=== PATIENT | female | born 1960 | race Caucasian/White ===

== ENCOUNTER 2019-01-04 02:40 | Observation (INO) | payer BC ==
[2019-01-04] MEDS ORDERED: NORMAL SALINE 1000 ML 1,000 ML IV ONE ×2 (03:08→08:15)
[2019-01-04] MEDS ORDERED: RINGERS SOLUTION,LACTATED 1,000 ML IV ONE (03:30)
[2019-01-04 03:42] LABS: ABSOLUTE LYMPHOCYTES (AUTO) 1.2 10^3/uL (0.5-4.7); ABSOLUTE MONOCYTES (AUTO) 1.3 10^3/uL (0.1-1.4); ABSOLUTE NEUT (AUTO) 8.1 10^3/uL (1.7-8.2); BASOPHILS % (AUTO) 0.3 % (0-2); EOSINOPHILS % (AUTO) 0.1 % (0-6); HEMATOCRIT 36.4 % (36.0-47.0); HEMOGLOBIN 12.8 g/dL (12.0-15.5); LYMPHOCYTES % (AUTO) 11.2 % (13-45); MEAN CORPUSCULAR HEMOGLOBIN 29.9 pg (27.0-33.4); MEAN CORPUSCULAR HGB CONC 35.1 g/dL (32.0-36.0); MEAN CORPUSCULAR VOLUME 85 fl (80-97); MONOCYTES % (AUTO) 12.1 % (3-13); PLATELET COUNT 241 10^3/uL (150-450); RED BLOOD COUNT 4.26 10^6/uL (3.72-5.28); RED CELL DISTRIBUTION WIDTH 13.4 % (11.5-14.0); SEGMENTED NEUTROPHILS % (AUTO) 76.3 % (42-78); TOTAL CELLS COUNTED % (AUTO) 100 %; WHITE BLOOD COUNT 10.6 10^3/uL (4.0-10.5)
--- NOTE | 2019-01-04 03:51 | RADIOLOGY REPORT (SQ) ---
EXAM DESCRIPTION: CT CERVICAL SPINE WITHOUT IV CONTRAST COMPLETED DATE/TME: 01/04/2019 03:08 CLINICAL HISTORY: 58 years Female, Fall Comparison: None. Technique: No contrast. Coronal and sagittal reformat. This exam was performed according to our departmental dose-optimization program, which includes automated exposure control, adjustment of the mA and/or kV according to patient size and/or use of iterative reconstruction technique.[facility]: Dose Right [facility]: CareDose [facility]: Dose Right [facility]: Teradose 4D [facility]: YASSSU LIMITATIONS: None Findings: Moderate disc bulge-osteophyte complex at C5-C6 and C6-C7 levels. Mild spondylosis at the cervicothoracic spine. Normal alignment. Normal curvature. No fracture. Normal vertebral heights. Partially imaged nuchal soft tissues, inferior cranium, and upper thorax appear otherwise grossly intact. IMPRESSION: No acute findings.
--- NOTE | 2019-01-04 03:53 | RADIOLOGY REPORT (SQ) ---
EXAM DESCRIPTION: CT HEAD WITHOUT IV CONTRAST COMPLETED DATE/TME: 01/04/2019 03:07 CLINICAL HISTORY: 58 years Female, Head injury COMPARISON: None. TECHNIQUE: No contrast. Coronal and sagittal reformat. This exam was performed according to our departmental dose-optimization program, which includes automated exposure control, adjustment of the mA and/or kV according to patient size and/or use of iterative reconstruction technique. FINDINGS: No hemorrhage or infarct. No mass, mass effect, or midline shift. Brain and extra-axial structures appear intact. IMPRESSION: Normal CT of the head.
[2019-01-04 04:04] LABS: ALANINE AMINOTRANSFERASE 46 U/L (9-52); ALBUMIN 3.4 g/dL (3.5-5.0); ALKALINE PHOSPHATASE 101 U/L (38-126); ANION GAP 11 (5-19); ASPARTATE AMINO TRANSFERASE 36 U/L (14-36); BILIRUBIN,DIRECT 0.3 mg/dL (0.0-0.4); BLOOD UREA NITROGEN 21 mg/dL (7-20); CALCIUM 8.3 mg/dL (8.4-10.2); CARBON DIOXIDE 26 mmol/L (22-30); CHLORIDE 97 mmol/L (98-107); GLUCOSE 143 mg/dL (75-110); SODIUM 134.1 mmol/L (137-145); TOTAL PROTEIN 6.4 g/dL (6.3-8.2)
[2019-01-04 04:07] LABS: POTASSIUM 2.9 mmol/L (3.6-5.0)
[2019-01-04] MEDS ORDERED: POTASSI CL 40 MEQ/D5-1/2NS 1L 40 MEQ/1,000 ML RTUINJ IV ONE (04:14)
--- NOTE | 2019-01-04 04:23 | ER Document Report ---
ED Fall - General Chief Complaint: Fall Injury Stated Complaint: FALL Time Seen by Provider: 01/04/19 03:07 Mode of Arrival: Medic Information source: Patient, Relative, Emergency Med Personnel Notes: Patient was attempting to the go to the bathroom tonight and she passed out into the tub and hit her head on the tub. TRAVEL OUTSIDE OF THE [place] IN LAST 30 DAYS: No - HPI Occurred: Just prior to arrival Where: Home Context: Fell from standing - Passed out Associated symptoms: Lost consciousness Location of injury/pain: Head Quality of pain: Sharp Severity: Mild Pain Level: 1 - Related data Allergies/Adverse Reactions: meloxicam [From Mobic] Allergy (Verified 01/04/19 03:27) Past Medical History - Social History Smoking Status: Unknown if Ever Smoked Family History: Reviewed & Not Pertinent Patient has suicidal ideation: No Patient has homicidal ideation: No Renal/ Medical History: Denies: Hx Peritoneal Dialysis Review of Systems - Review of Systems Constitutional: No symptoms reported EENT: Other - Left eyebrow puncture wound. Cardiovascular: No symptoms reported Respiratory: No symptoms reported Gastrointestinal: Abdominal pain, Diarrhea, Nausea Genitourinary: No symptoms reported Female Genitourinary: No symptoms reported Musculoskeletal: No symptoms reported Skin: No symptoms reported Hematologic/Lymphatic: No symptoms reported Neurological/Psychological: No symptoms reported -: Yes All other systems reviewed and negative Physical Exam - Vital signs Vitals: Resp 12 01/04/19 02:57 Interpretation: Normal - General General appearance: Appears well, Alert - HEENT Head: Normocephalic, Other - Left eyebrow puncture wound. Bleeding is controlled. Eyes: Normal Conjunctiva: Normal Cornea: Normal Pupils: PERRL - Respiratory Respiratory status: No respiratory distress Chest status: Nontender Breath sounds: Normal Chest palpation: Normal - Cardiovascular Rhythm: Regular Heart sounds: Normal auscultation Murmur: No - Abdominal Inspection: Normal Distension: No distension Bowel sounds: Normal Tenderness: Nontender Organomegaly: No organomegaly - Back Back: Normal, Nontender - Extremities General upper extremity: Normal inspection, Nontender, Normal color, Normal ROM, Normal temperature General lower extremity: Normal inspection, Nontender, Normal color, Normal ROM, Normal temperature, Normal weight bearing. No: Becky's sign - Neurological Neuro grossly intact: Yes Cognition: Normal Orientation: AAOx4 Shakir Coma Scale Eye Opening: Spontaneous Shakir Coma Scale Verbal: Oriented Shakir Coma Scale Motor: Obeys Commands [place] Coma Scale Total: 15 Speech: Normal Motor strength normal: LUE, RUE, LLE, RLE Sensory: Normal - Psychological Associated symptoms: Normal affect, Normal mood - Skin Skin Temperature: Warm Skin Moisture: Dry Skin Color: Normal Course - Vital Signs Vital signs: Temp Pulse Resp BP Pulse Ox 98.0 F 14 106/54 L 95 01/04/19 03:01 01/04/19 06:11 01/04/19 06:11 01/04/19 06:11 - Laboratory Result Diagrams: 01/04/19 03:32 01/04/19 03:32 Laboratory results interpreted by me: 01/04/19 01/04/19 03:32 03:32 WBC 10.6 H Lymphocytes % 11.2 L Sodium 134.1 L Potassium 2.9 L* Chloride 97 L BUN 21 H Creatinine 1.78 H Est GFR ( Amer) 36 L Est GFR (Non-Af Amer) 29 L Glucose 143 H Calcium 8.3 L Albumin 3.4 L - Diagnostic Test Radiology reviewed: Reports reviewed - EKG Interpretation by Me EKG shows normal: Sinus rhythm Rate: Normal - 61 Rhythm: NSR When compared to previous EKG there are: Previous EKG unavailable Additional EKG results interpreted by me: 01/04/19 05:21 Diffuse T wave flattening. No STEMI. - Transfer of Care Notes: 01/04/19 06:17 Patient care was discussed with Dr. Ramon Milligan who is the hospitalist avionics mechanic. He will admit patient for further evaluation and management in the hospital. Critical Care Note - Critical Care Note Total time excluding time spent on procedures (mins): 50 Discharge - Discharge Clinical Impression: Acute renal injury due to hypovolemia, Hypovolemic shock, Acute hypokalemia, Acute infectious diarrhea Fall Qualifiers: Encounter type: initial encounter Qualified Code(s): W19.XXXA - Unspecified fall, initial encounter Syncope Qualifiers: Syncope type: vasovagal syncope Qualified Code(s): R55 - Syncope and collapse Diarrhea Qualifiers: Diarrhea type: unspecified type Qualified Code(s): R19.7 - Diarrhea, unspecified Abdominal pain Qualifiers: Abdominal location: generalized Qualified Code(s): R10.84 - Generalized abdominal pain Condition: Fair Disposition: ADMITTED INPATIENT Admitting Provider: Hospitalist Unit Admitted: [facility]
[2019-01-04] MEDS ORDERED: LEVOFLOXACIN 750 MG/D5W RTU 750 MG/150 ML RTUPB IV ONE (04:53)
[2019-01-04 04:55] LABS: INTERNATIONAL RATION (INR) 1.02; PROTHROMBIN TIME 13.9 SEC (11.4-15.4)
--- NOTE | 2019-01-04 06:10 | RADIOLOGY REPORT (SQ) ---
EXAM DESCRIPTION: CT ABDOMEN PELVIS WITHOUT IV CONTRAST COMPLETED DATE/TME: 01/04/2019 04:24 CLINICAL HISTORY: 58 years, Female, abdominal pain COMPARISON: None. TECHNIQUE: Axial CT images of the abdomen pelvis were obtained without contrast. Sagittal and coronal reformats were performed. DL 961 Images stored on PACS. All CT scanners at this facility use dose modulation, iterative reconstruction, and/or weight based dosing when appropriate to reduce radiation dose to as low as reasonably achievable (ALARA). [facility]: Dose Right [facility]: CareDose [facility]: Dose Right [facility]: Teradose 4D [facility]: [employer] LIMITATIONS: None. FINDINGS: The lung bases are clear. Cholecystectomy. The liver, pancreas, spleen, and adrenal glands are unremarkable. Both kidneys appear unremarkable with no evidence of urolithiasis or hydronephrosis. There are atherosclerotic calcifications of the abdominal aorta without evidence of an aneurysm. There is no lymphadenopathy. There is no intraperitoneal free air or fluid. The stomach is unremarkable. Bowel is unremarkable. The appendix is not uniquely identified, however there are no inflammatory changes within the right lower quadrant. Fluid is noted within the colon and rectum. There are postsurgical changes near the rectosigmoid junction. Hysterectomy. The urinary bladder is unremarkable. There is no acute fracture. IMPRESSION: Fluid within the colon and rectum, likely related to diarrhea. TECHNICAL DOCUMENTATION: Quality ID # 436: Final reports with documentation of one or more dose reduction techniques (e.g., Automated exposure control, adjustment of the mA and/or kV according to patient size, use of iterative reconstruction technique) copyright 2011 [employer]- All Rights Reserved
[2019-01-04] MEDS ORDERED: METRONIDAZOLE 500 MG/NS RTU 500 MG/100 ML RTUPB IV ONE (06:49)
[2019-01-04] MEDS ORDERED: VANCOMYCIN HCL INJ 500 MG VIAL PO ONE (06:53)
[2019-01-04 07:37] LABS: APPEARANCE,URINE SLIGHTLY-CLOUDY; BILIRUBIN,URINE NEGATIVE (NEGATIVE); COLOR,URINE YELLOW; GLUCOSE, URINE NEGATIVE (NEGATIVE); KETONES,URINE NEGATIVE (NEGATIVE); LEUKOCYTE ESTERASE,URINE NEGATIVE (NEGATIVE); NITRITE,URINE NEGATIVE (NEGATIVE); PROTEIN,URINE NEGATIVE (NEGATIVE); URINE SPECIFIC GRAVITY 1.013; UROBILINOGEN,URINE NEGATIVE mg/dL (<2.0)
[2019-01-04 07:55] LABS: URINE AMPHETAMINES SCREEN NEGATIVE; URINE BARBITURATES SCREEN NEGATIVE; URINE BENZODIAZEPINES SCREEN NEGATIVE; URINE COCAINE SCREEN NEGATIVE; URINE MARIJUANA (THC) SCREEN NEGATIVE; URINE METHADONE SCREEN NEGATIVE; URINE PHENCYCLIDINE SCREEN NEGATIVE
[2019-01-04] MEDS ORDERED: ACETAMINOPHEN 325 MG TABLET PO PRN (08:00)
[2019-01-04] MEDS ORDERED: MAG HYDROX/AL HYDROX/SIMETH SUSP 30 ML UDCUP PO PRN (08:00)
[2019-01-04] MEDS ORDERED: ALBUTEROL SULFATE 0.083% NEB 2.5 MG/3 ML AMPUL NEB PRN (08:00)
[2019-01-04] MEDS ORDERED: ONDANSETRON HCL INJ/PF 4 MG/2 ML SDV IV PRN (08:00)
[2019-01-04] MEDS: NORMAL SALINE 1000 ML 1,000 ML IV PRN ×2 (10:02→21:06)
[2019-01-04] MEDS: FAMOTIDINE 20 MG TABLET PO SCH ×2 (10:04→21:05)
[2019-01-04 13:07] LABS: ANION GAP 8 (5-19); BLOOD UREA NITROGEN 15 mg/dL (7-20); CALCIUM 8.1 mg/dL (8.4-10.2); CARBON DIOXIDE 27 mmol/L (22-30); CHLORIDE 100 mmol/L (98-107); GLUCOSE 91 mg/dL (75-110); POTASSIUM 3.1 mmol/L (3.6-5.0); SODIUM 135.1 mmol/L (137-145)
--- NOTE | 2019-01-04 14:48 | EKG REPORT ---
SEVERITY:- BORDERLINE ECG - SINUS RHYTHM BORDERLINE T ABNORMALITIES, DIFFUSE LEADS : Confirmed by: Therese Welsh MD 04-Jan-2019 14:47:29
[2019-01-04] MEDS: HEPARIN SOD (PORCINE) 5,000 UNIT/ML 1 ML SYRINGE SUBCUT SCH ×2 (15:05→21:06)
[2019-01-04] MEDS ORDERED: POTASSIUM CHLORIDE 20 MEQ/15 ML UDCUP PO ONE (19:05)
[2019-01-04] MEDS ORDERED: TRAMADOL HCL 50 MG TABLET PO PRN (19:06)
--- NOTE | 2019-01-04 19:20 | PDOC H&P ---
History of Present Illness Admission Date/PCP: 01/04/19 06:57 Patient complains of: syncope History of Present Illness: ERNESTO ZIMMERMAN is a 58 year old female with a past medical history of hypertension, depression, chronic pain, and GERD who presented to the emergency department by EMS today for report of syncope at home. Patient reports that she has had 4 days of diarrhea illness (5-6 large volume bowel movements daily) without nausea or vomiting. She reports that she has had a subjective fever, generalized weakness, and dizziness. She reports that she was getting up to use the commode today when she became lightheaded and had a syncopal episode in the bathroom hitting her head against the tub. Evaluation in emergency department found hypotension with blood pressure 90/50, mild leukocytosis (WBC 10.6), hypokalemia (K2.9), AK I (creatinine 1.78 with BUN 21), normal urinalysis, negative occult stool, negative UDS, negative C. difficile PCR. Head CT, cervical spine CT, and abdominal pelvis CT are all benign. She is referred to the hospitalist service for admission and management of acute kidney injury secondary to dehydration in the setting of gastritis. Past Medical History Cardiac Medical History: Reports: Hypertension Denies: Coronary Artery Disease, Hyperlipidema Pulmonary Medical History: Reports: None EENT Medical History: Reports: None Neurological Medical History: Reports: None Endocrine Medical History: Reports: None Renal/ Medical History: Reports: None Malignancy Medical History: Reports: None GI Medical History: Reports: Gastroesophageal Reflux Disease Musculoskeltal Medical History: Reports: Arthritis, Other - TMJ Psychiatric Medical History: Reports: Depression Hematology: Reports: None Infectious Medical History: Reports: None Past Surgical History Past Surgical History: Reports: Hysterectomy, Other - Partial colectomy secondary to endometriosis Social History Information Source: Patient Lives with: Spouse/Significant other Smoking Status: Never Smoker Frequency of Alcohol Use: Occasional Hx Recreational Drug Use: No Hx Prescription Drug Abuse: No - Advance Directive Resuscitation Status: Full Code Family History Family History: Reviewed & Not Pertinent Parental Family History Reviewed: Yes Children Family History Reviewed: Yes Sibling(s) Family History Reviewed.: Yes Medication/Allergy Home Medications: Aspirin [Ecotrin] 81 mg PO DAILY 01/04/19 Citalopram Hydrobromide [Celexa 20 mg Tablet] 20 mg PO DAILY 01/04/19 Cyclobenzaprine HCl [Flexeril 10 mg Tablet] 10 mg PO DAILY 01/04/19 Docusate Sodium [Stool Softener] 100 mg PO PRN PRN 01/04/19 Hydrochlorothiazide [Hydrodiuril 12.5 mg Tablet] 12.5 mg PO QAM 01/04/19 Irbesartan [Avapro] 300 mg PO DAILY 01/04/19 Omeprazole 10 mg PO DAILY 01/04/19 Tramadol HCl [Ultram] 50 mg PO DAILYP PRN 01/04/19 Allergies/Adverse Reactions: meloxicam [From Mobic] Allergy (Verified 01/04/19 03:27) Review of Systems Constitutional: PRESENT: anorexia, chills, fever(s), weakness. ABSENT: headache(s), weight gain, weight loss Eyes: ABSENT: visual disturbances Ears: ABSENT: hearing changes Cardiovascular: ABSENT: chest pain, dyspnea on exertion, edema, orthropnea, palpitations Respiratory: ABSENT: cough, hemoptysis Gastrointestinal: PRESENT: abdominal pain, diarrhea, nausea. ABSENT: constipation, hematemesis, hematochezia, vomiting Genitourinary: ABSENT: dysuria, hematuria Musculoskeletal: ABSENT: joint swelling Integumentary: ABSENT: rash, wounds Neurological: PRESENT: syncope. ABSENT: abnormal gait, abnormal speech, confusion, dizziness, focal weakness Psychiatric: ABSENT: anxiety, depression, homidical ideation, suicidal ideation Endocrine: ABSENT: cold intolerance, heat intolerance, polydipsia, polyuria Hematologic/Lymphatic: ABSENT: easy bleeding, easy bruising Physical Exam Vital Signs: Temp Pulse Resp BP Pulse Ox 99.3 F 80 19 117/55 L 98 01/04/19 16:07 01/04/19 16:07 01/04/19 16:07 01/04/19 16:07 01/04/19 16:07 Intake & Output 01/03/19 01/04/19 01/05/19 06:59 06:59 06:59 Intake Total 1000 2675 Output Total 600 Balance 1000 2075 Weight 88.2 kg 91.8 kg General appearance: PRESENT: no acute distress, cooperative, obese, well- developed, well-nourished Head exam: PRESENT: atraumatic, normocephalic Eye exam: PRESENT: conjunctiva pink, EOMI, PERRLA. ABSENT: scleral icterus Mouth exam: PRESENT: moist, tongue midline Neck exam: ABSENT: carotid bruit, JVD, lymphadenopathy, thyromegaly Respiratory exam: PRESENT: clear to auscultation janay, symmetrical, unlabored. ABSENT: rales, rhonchi, wheezes Cardiovascular exam: PRESENT: RRR, +S1, +S2. ABSENT: diastolic murmur, rubs, systolic murmur Pulses: PRESENT: normal dorsalis pedis pul Vascular exam: PRESENT: normal capillary refill GI/Abdominal exam: PRESENT: hyperactive bowel sounds, soft, tenderness. ABSENT: distended, guarding, mass, organolmegaly, rebound Rectal exam: PRESENT: heme (-) stool Gentrourinary exam: PRESENT: indwelling catheter Extremities exam: PRESENT: full ROM. ABSENT: calf tenderness, clubbing, pedal edema Neurological exam: PRESENT: alert, awake, oriented to person, oriented to place, oriented to time, oriented to situation, CN II-XII grossly intact. ABSENT: motor sensory deficit Psychiatric exam: PRESENT: appropriate affect, normal mood. ABSENT: homicidal ideation, suicidal ideation Skin exam: PRESENT: dry, intact, warm. ABSENT: cyanosis, rash Results Laboratory Results: 01/04/19 03:32 01/04/19 12:00 01/04/19 01/04/19 01/04/19 03:32 03:32 05:14 WBC 10.6 H RBC 4.26 Hgb 12.8 Hct 36.4 MCV 85 MCH 29.9 MCHC 35.1 RDW 13.4 Plt Count 241 Seg Neutrophils % 76.3 Lymphocytes % 11.2 L Monocytes % 12.1 Eosinophils % 0.1 Basophils % 0.3 Absolute Neutrophils 8.1 Absolute Lymphocytes 1.2 Absolute Monocytes 1.3 Absolute Eosinophils 0.0 Absolute Basophils 0.0 Sodium 134.1 L Potassium 2.9 L* Chloride 97 L Carbon Dioxide 26 Anion Gap 11 BUN 21 H Creatinine 1.78 H Est GFR ( Amer) 36 L Est GFR (Non-Af Amer) 29 L Glucose 143 H Lactic Acid 1.2 Calcium 8.3 L Total Bilirubin 1.0 AST 36 ALT 46 Alkaline Phosphatase 101 Total Protein 6.4 Albumin 3.4 L Urine Color Urine Appearance Urine pH Ur Specific [place] Urine Protein Urine Glucose (UA) Urine Ketones Urine Blood Urine Nitrite Ur Leukocyte Esterase Urine WBC (Auto) Urine RBC (Auto) Stool Occult Blood Stool for White Cells 01/04/19 01/04/19 01/04/19 06:38 06:38 06:38 WBC RBC Hgb Hct MCV MCH MCHC RDW Plt Count Seg Neutrophils % Lymphocytes % Monocytes % Eosinophils % Basophils % Absolute Neutrophils Absolute Lymphocytes Absolute Monocytes Absolute Eosinophils Absolute Basophils Sodium Potassium Chloride Carbon Dioxide Anion Gap BUN Creatinine Est GFR ( Amer) Est GFR (Non-Af Amer) Glucose Lactic Acid Calcium Total Bilirubin AST ALT Alkaline Phosphatase Total Protein Albumin Urine Color YELLOW Urine Appearance SLIGHTLY-CLOUDY Urine pH 6.0 Ur Specific [place] 1.013 Urine Protein NEGATIVE Urine Glucose (UA) NEGATIVE Urine Ketones NEGATIVE Urine Blood NEGATIVE Urine Nitrite NEGATIVE Ur Leukocyte Esterase NEGATIVE Urine WBC (Auto) 1 Urine RBC (Auto) 0 Stool Occult Blood NEGATIVE Stool for White Cells NO WBCs SEEN 01/04/19 12:00 WBC RBC Hgb Hct MCV MCH MCHC RDW Plt Count Seg Neutrophils % Lymphocytes % Monocytes % Eosinophils % Basophils % Absolute Neutrophils Absolute Lymphocytes Absolute Monocytes Absolute Eosinophils Absolute Basophils Sodium 135.1 L Potassium 3.1 L Chloride 100 Carbon Dioxide 27 Anion Gap 8 BUN 15 Creatinine 1.12 Est GFR ( Amer) > 60 Est GFR (Non-Af Amer) 50 L Glucose 91 Lactic Acid Calcium 8.1 L Total Bilirubin AST ALT Alkaline Phosphatase Total Protein Albumin Urine Color Urine Appearance Urine pH Ur Specific [place] Urine Protein Urine Glucose (UA) Urine Ketones Urine Blood Urine Nitrite Ur Leukocyte Esterase Urine WBC (Auto) Urine RBC (Auto) Stool Occult Blood Stool for White Cells Impressions: Head CT 01/04/19 03:07 IMPRESSION: Normal CT of the head. Cervical Spine CT 01/04/19 03:08 IMPRESSION: No acute findings. Abdomen/Pelvis CT 01/04/19 04:24 IMPRESSION: Fluid within the colon and rectum, likely related to diarrhea. TECHNICAL DOCUMENTATION: Quality ID # 436: Final reports with documentation of one or more dose reduction techniques (e.g., Automated exposure control, adjustment of the mA and/or kV according to patient size, use of iterative reconstruction technique) copyright 2011 [employer] All Rights Reserved Assessment and Plan - Diagnosis (1) Acute infectious diarrhea Is this a current diagnosis for this admission?: Yes Plan: Patient with 4-day history of large volume, frequent, diarrhea bowel movements. Was seen at her primary care provider yesterday and told that she had a viral gastroenteritis. WBCs minimally elevated to 10.6. Patient reports subjective fever but is afebrile upon arrival to the emergency department. She has a benign abdominal exam and a normal abdominal/pelvic CT other than fluid noted in the colon and rectum. Occult stool is negative. Stool WBCs negative. C. difficile PCR is negative. Stool culture pending. Blood culture pending. Patient is admitted to the medical floor and continuous cardiac telemetry. She is provided IV fluid hydration. Antiemetics as needed. She is initially placed on a clear liquid diet; tolerating well today, will advance to BRAT diet. She did receive IV metronidazole, Levaquin, and p.o. vancomycin while in the emergency department. As the patient remains afebrile with a normal WBC, reassuring imaging, and benign exam, will hold on additional at this time. Juani corral is asked to notify me if she becomes febrile so that antibiotics can be quickly resumed. (2) Acute hypokalemia Is this a current diagnosis for this admission?: Yes Plan: Secondary to diarrheal illness. Have replaced with IV and p.o. potassium. We will monitor serial chemistries and continue to replace as necessary. (3) Acute renal injury due to hypovolemia Is this a current diagnosis for this admission?: Yes Plan: Secondary to diarrheal illness. Patient's creatinine has already improved with IV fluids; creatinine 1.78-> 1.12. BUN 21-> 15. We will continue gentle IV fluid hydration. Avoid nephrotoxic medications. Daily chemistries. (4) Syncope Qualifiers: Syncope type: vasovagal syncope Qualified Code(s): R55 - Syncope and collapse Is this a current diagnosis for this admission?: Yes Plan: Vasovagal syncope secondary to dehydration and diarrheal illness. Blood pressures are improved with IV fluid rehydration. Head CT and cervical spine CT are negative for acute findings. Will obtain orthostatic blood pressures every shift. Fall precautions. - Time Time Spent with patient: 35 or more minutes Medications reviewed and adjusted accordingly: Yes Anticipated discharge: Home Within: within 48 hours - Inpatient Certification Based on my medical assessment, after consideration of the patient's comorbidities, presenting symptoms, or acuity I expect that the services needed warrant INPATIENT care.: Yes I certify that my determination is in accordance with my understanding of Medicare's requirements for reasonable and necessary INPATIENT services [42 CFR 412.3e].: Yes Medical Necessity: Need For IV Fluids
[2019-01-05] MEDS: NORMAL SALINE 1000 ML 1,000 ML IV PRN ×3 (04:44→22:03)
[2019-01-05 04:48] LABS: MEAN CORPUSCULAR HGB CONC 35.6 g/dL (32.0-36.0); MEAN CORPUSCULAR VOLUME 84 fl (80-97); PLATELET COUNT 181 10^3/uL (150-450); RED BLOOD COUNT 3.68 10^6/uL (3.72-5.28); RED CELL DISTRIBUTION WIDTH 13.4 % (11.5-14.0)
[2019-01-05] MEDS: HEPARIN SOD (PORCINE) 5,000 UNIT/ML 1 ML SYRINGE SUBCUT SCH ×3 (05:14→21:11)
[2019-01-05 05:18] LABS: ANION GAP 10 (5-19); BLOOD UREA NITROGEN 7 mg/dL (7-20); CALCIUM 8.2 mg/dL (8.4-10.2); CARBON DIOXIDE 25 mmol/L (22-30); CHLORIDE 101 mmol/L (98-107); GLUCOSE 101 mg/dL (75-110)
[2019-01-05 05:25] LABS: POTASSIUM 2.7 mmol/L (3.6-5.0)
[2019-01-05] MEDS ORDERED: POTASSIUM CHLORIDE 10 MEQ CAPSULE.ER PO ONE (06:00)
[2019-01-05] MEDS: POTASSIUM CHLORIDE 20 MEQ/50 ML RTU IV SCH ×2 (06:17→07:37)
[2019-01-05] MEDS: FAMOTIDINE 20 MG TABLET PO SCH ×2 (09:14→21:11)
[2019-01-05] MEDS: CITALOPRAM HYDROBROMIDE 20 MG TABLET PO SCH (09:14)
--- NOTE | 2019-01-05 15:11 | PDOC PROGRESS REPORT ---
Subjective Progress Note for:: 01/05/19 Subjective:: ERNESTO ZIMMERMAN is a 58 year old female with a past medical history of hypertension, depression, chronic pain, and GERD who was admitted 01/04/2019 for syncope related to dehydration, acute kidney injury, and diarrhea. Patient was seen on morning rounds. She reports that she is feeling much better. Her abdominal cramping has decreased, although, she continues to have hourly large volume stools. She reports slight return of her appetite and tolerated a banana and plain biscuit today. She denies fever, chills, chest pain, palpitations, dyspnea, cough, nausea, vomiting. She requests after Byrd removed, no other concerns or questions today. No concerns per nursing. Reason For Visit: SYNCOPE,HYPOTENSION,DIARRHEA Physical Exam Vital Signs: Temp Pulse Resp BP Pulse Ox 97.9 F 67 16 110/59 L 98 01/05/19 11:42 01/05/19 11:42 01/05/19 11:42 01/05/19 11:42 01/05/19 11:42 Intake & Output 01/04/19 01/05/19 01/06/19 06:59 06:59 06:59 Intake Total 1000 5846 1583 Output Total 1400 350 Balance 1000 4446 1233 Weight 88.2 kg 93.6 kg General appearance: PRESENT: no acute distress, cooperative, obese, well- developed, well-nourished Head exam: PRESENT: atraumatic, normocephalic Eye exam: PRESENT: conjunctiva pink, EOMI, PERRLA. ABSENT: scleral icterus Mouth exam: PRESENT: moist, tongue midline Neck exam: ABSENT: carotid bruit, JVD, lymphadenopathy, thyromegaly Respiratory exam: PRESENT: clear to auscultation janay, symmetrical, unlabored. ABSENT: rales, rhonchi, wheezes Cardiovascular exam: PRESENT: RRR, +S1, +S2. ABSENT: diastolic murmur, rubs, systolic murmur Pulses: PRESENT: normal dorsalis pedis pul Vascular exam: PRESENT: normal capillary refill GI/Abdominal exam: PRESENT: hyperactive bowel sounds, soft. ABSENT: distended, guarding, mass, organolmegaly, rebound, tenderness Rectal exam: PRESENT: deferred Extremities exam: PRESENT: full ROM. ABSENT: calf tenderness, clubbing, pedal edema Neurological exam: PRESENT: alert, awake, oriented to person, oriented to place, oriented to time, oriented to situation, CN II-XII grossly intact. ABSENT: motor sensory deficit Psychiatric exam: PRESENT: appropriate affect, normal mood. ABSENT: homicidal ideation, suicidal ideation Skin exam: PRESENT: dry, intact, warm. ABSENT: cyanosis, rash Results Laboratory Results: 01/05/19 04:19 01/05/19 04:19 01/05/19 01/05/19 01/05/19 04:19 04:19 04:19 WBC 6.0 RBC 3.68 L Hgb 11.0 L Hct 31.0 L MCV 84 MCH 30.0 MCHC 35.6 RDW 13.4 Plt Count 181 Sodium 136.0 L Potassium 2.7 L* Chloride 101 Carbon Dioxide 25 Anion Gap 10 BUN 7 Creatinine 0.98 Est GFR ( Amer) > 60 Est GFR (Non-Af Amer) 58 L Glucose 101 Calcium 8.2 L Magnesium 1.8 Impressions: Head CT 01/04/19 03:07 IMPRESSION: Normal CT of the head. Cervical Spine CT 01/04/19 03:08 IMPRESSION: No acute findings. Abdomen/Pelvis CT 01/04/19 04:24 IMPRESSION: Fluid within the colon and rectum, likely related to diarrhea. TECHNICAL DOCUMENTATION: Quality ID # 436: Final reports with documentation of one or more dose reduction techniques (e.g., Automated exposure control, adjustment of the mA and/or kV according to patient size, use of iterative reconstruction technique) copyright 2011 [employer]- All Rights Reserved Assessment and Plan - Diagnosis (1) Acute infectious diarrhea Is this a current diagnosis for this admission?: Yes Plan: Patient with 4-day history of large volume, frequent, diarrhea bowel movements. Was seen at her primary care provider yesterday and told that she had a viral gastroenteritis. WBCs minimally elevated to 10.6. Patient reports subjective fever but is afebrile upon arrival to the emergency department. She has a benign abdominal exam and a normal abdominal/pelvic CT other than fluid noted in the colon and rectum. Occult stool is negative. Stool WBCs negative. C. difficile PCR is negative. Stool culture shows gram-negative rods; presumptive Salmonella. Blood culture are negative at 24 hours. Patient is admitted to the medical floor and continuous cardiac telemetry. She is provided IV fluid hydration. Antiemetics as needed. She is initially placed on a clear liquid diet; tolerating well today, will advance to BRAT diet. We will start p.o. Cipro 500 mg twice daily for presumptive Salmonella. (2) Acute hypokalemia Is this a current diagnosis for this admission?: Yes Plan: Secondary to diarrheal illness. Magnesium is appropriate; 1.8. Replaced again today with IV and p.o. potassium. We will monitor serial chemistries and continue to replace as necessary. Hopefully will begin improving that the patient is tolerating a small amount of p.o. intake. (3) Acute renal injury due to hypovolemia Is this a current diagnosis for this admission?: Yes Plan: Resolved. Secondary to diarrheal illness. Patient's creatinine has already improved with IV fluids; creatinine 1.78-> 1.12-> 0.98. BUN 21-> 15-> 7. We will continue gentle IV fluid hydration. Avoid nephrotoxic medications. Daily chemistries. (4) Syncope Qualifiers: Syncope type: vasovagal syncope Qualified Code(s): R55 - Syncope and collapse Is this a current diagnosis for this admission?: Yes Plan: Vasovagal syncope secondary to dehydration and diarrheal illness. Blood pressures are improved with IV fluid rehydration. Head CT and cervical spine CT are negative for acute findings. Will obtain orthostatic blood pressures every shift. Fall precautions. (5) Salmonella Is this a current diagnosis for this admission?: Yes Plan: Cultures and antibiotics as above. - Time Time Spent with patient: 15-24 minutes Medications reviewed and adjusted accordingly: Yes Anticipated discharge: Home Within: within 48 hours - Inpatient Certification Based on my medical assessment, after consideration of the patient's comorbidities, presenting symptoms, or acuity I expect that the services needed warrant INPATIENT care.: Yes I certify that my determination is in accordance with my understanding of Medicare's requirements for reasonable and necessary INPATIENT services [42 CFR 412.3e].: Yes Medical Necessity: Failure to Improve With Outpatient Therapy, Need For IV Fluids, Risk of Diagnosis Which Will Require Inpatient Eval/Care/Monitoring
[2019-01-05] MEDS: CIPROFLOXACIN HCL 500 MG TABLET PO SCH (21:11)
[2019-01-05] MEDS ORDERED: LOPERAMIDE HCL 2 MG CAPSULE PO ONE (21:15)
[2019-01-06 04:46] LABS: HEMATOCRIT 28.5 % (36.0-47.0); HEMOGLOBIN 10.2 g/dL (12.0-15.5); MEAN CORPUSCULAR HEMOGLOBIN 30.5 pg (27.0-33.4); MEAN CORPUSCULAR VOLUME 85 fl (80-97); PLATELET COUNT 188 10^3/uL (150-450); RED BLOOD COUNT 3.36 10^6/uL (3.72-5.28); RED CELL DISTRIBUTION WIDTH 13.2 % (11.5-14.0); WHITE BLOOD COUNT 7.6 10^3/uL (4.0-10.5)
[2019-01-06] MEDS: NORMAL SALINE 1000 ML 1,000 ML IV PRN (04:54)
[2019-01-06] MEDS: HEPARIN SOD (PORCINE) 5,000 UNIT/ML 1 ML SYRINGE SUBCUT SCH (05:03)
[2019-01-06 05:08] LABS: ANION GAP 5 (5-19); BLOOD UREA NITROGEN 6 mg/dL (7-20); CALCIUM 7.9 mg/dL (8.4-10.2); CARBON DIOXIDE 26 mmol/L (22-30); CHLORIDE 108 mmol/L (98-107); GLUCOSE 87 mg/dL (75-110); POTASSIUM 3.2 mmol/L (3.6-5.0); SODIUM 139.2 mmol/L (137-145)
[2019-01-06] MEDS ORDERED: POTASSIUM CHLORIDE 10 MEQ CAPSULE.ER PO ONE (07:54)
[2019-01-06] MEDS ORDERED: NORMAL SALINE 1000 ML 1,000 ML IV PRN (07:55)
[2019-01-06] MEDS: FAMOTIDINE 20 MG TABLET PO SCH (09:15)
[2019-01-06] MEDS: CITALOPRAM HYDROBROMIDE 20 MG TABLET PO SCH (09:15)
[2019-01-06] MEDS: CIPROFLOXACIN HCL 500 MG TABLET PO SCH (09:16)
[2019-01-06 12:48] VITALS: BP 124/67
--- NOTE | 2019-01-09 14:35 | PDOC DISCHARGE SUMMARY ---
General - Admit/Disc Date/PCP Admission Date/Primary Care Provider: 01/04/19 06:57 Discharge Date: 01/06/19 - Discharge Diagnosis (1) Salmonella Is this a current diagnosis for this admission?: Yes Summary: Improved; patient has not had a stool x 24 hours, abdominal discomfort has resolved, and she is now tolerating a BRAT diet. Patient was admitted with 4-day history of large volume, frequent, diarrhea bowel movements. Leukocytosis has resolved. CT other than fluid noted in the colon and rectum. Occult stool is negative. Stool WBCs negative. C. difficile PCR is negative. Stool culture grew Salmonella species. Blood culture are negative at 5 days. Patient was admitted to the medical floor and continuous cardiac telemetry. She was provided IV fluid hydration and electrolyte replacement as indicated by daily labs. Antiemetics as needed. She is initially placed on a clear liquid diet and was advanced to BRAT diet which she continues to tolerate well. She is placed on p.o. Cipro 500 mg twice daily and provided a prescription at discharge to complete her course of antibiotic therapy. At discharge, she is in stable condition and asymptomatic. She is advised to drink plenty of water, continue BRAT diet and advance slowly. She is advised to follow up with her PCP within 1 week and to return to the emergency department as needed for any concerning symptoms. (2) Acute hypokalemia Is this a current diagnosis for this admission?: Yes Summary: Replete; patient received a combination or oral and IV potassium replacement. Secondary to diarrheal illness. Magnesium is appropriate; 1.8. At discharge, the patient was provided a prescription for Potassium 20 mEq #4 and instructed that if the frequency/volume of water stools returns; take the potassium. Otherwise she should not need this; she is advised of potassium containing foods while on BRAT diet. Recommend repeat Chemistry at follow up visit with PCP. (3) Acute renal injury due to hypovolemia Is this a current diagnosis for this admission?: Yes Summary: Resolved. Secondary to diarrheal illness. Patient's creatinine has already improved with IV fluids; creatinine 1.78-> 1.12-> 0.98. BUN 21-> 15-> 7. She is encouraged to drink plenty of fluids and eat as tolerated. (4) Syncope Is this a current diagnosis for this admission?: Yes Summary: Vasovagal syncope secondary to dehydration and diarrheal illness. Blood pressures are improved with IV fluid rehydration. Head CT and cervical spine CT are negative for acute findings. Orthostatic blood pressures negative on day of discharge. (5) Acute infectious diarrhea Is this a current diagnosis for this admission?: Yes Summary: Secondary to #1; management as above. (6) Hypertension Is this a current diagnosis for this admission?: Yes Summary: Patient reports history of Hypertension. Her home medications were held at admission secondary to hypotension and syncope. She remained normotensive throughout her admission. At discharge, she is instructed to check blood pressure daily and keep a log to show PCP at follow up. She is instructed to continue to hold blood pressure medications until visit with primary care provider unless SBP>140 or DBP>85. - Additional Information Resuscitation Status: Full Code Discharge Diet: As Tolerated, Other (Comments) Discharge Activity: Activity As Tolerated, Balance Activity w/Rest, Slowly Increase Activity Prescriptions: Ciprofloxacin HCl [Cipro 500 mg Tablet] 500 mg PO Q12 #8 tablet Potassium Chloride [K-Tab ER] 20 meq PO DAILY #4 tablet.er Home Medications: Aspirin [Ecotrin] 81 mg PO DAILY 01/04/19 Citalopram Hydrobromide [Celexa 20 mg Tablet] 20 mg PO DAILY 01/04/19 Cyclobenzaprine HCl [Flexeril 10 mg Tablet] 10 mg PO DAILY 01/04/19 Hydrochlorothiazide [Hydrodiuril 12.5 mg Tablet] 12.5 mg PO QAM 01/04/19 Irbesartan [Avapro] 300 mg PO DAILY 01/04/19 Omeprazole 10 mg PO DAILY 01/04/19 Tramadol HCl [Ultram] 50 mg PO DAILYP PRN 01/04/19 Acetaminophen [Tylenol 325 mg Tablet] 650 mg PO Q4HP PRN tablet 01/06/19 Ciprofloxacin HCl [Cipro 500 mg Tablet] 500 mg PO Q12 #8 tablet 01/06/19 Potassium Chloride [K-Tab ER] 20 meq PO DAILY #4 tablet.er 01/06/19 History of Present Illness History of Present Illness: ERNESTO ZIMMERMAN is a 58 year old female with a past medical history of hypertension, depression, chronic pain, and GERD who presented to the emergency department by EMS today for report of syncope at home. Patient reports that she has had 4 days of diarrhea illness (5-6 large volume bowel movements daily) without nausea or vomiting. She reports that she has had a subjective fever, generalized weakness, and dizziness. She reports that she was getting up to use the commode today when she became lightheaded and had a syncopal episode in the bathroom hitting her head against the tub. Evaluation in emergency department found hypotension with blood pressure 90/50, mild leukocytosis (WBC 10.6), hypokalemia (K2.9), AK I (creatinine 1.78 with BUN 21), normal urinalysis, negative occult stool, negative UDS, negative C. d ifficile PCR. Head CT, cervical spine CT, and abdominal pelvis CT are all benign. She is referred to the hospitalist service for admission and management of acute kidney injury secondary to dehydration in the setting of gastritis. Physical Exam Vital Signs: Temp Pulse Resp BP Pulse Ox 98.4 F 63 14 117/52 L 97 01/06/19 12:12 01/06/19 12:12 01/06/19 12:12 01/06/19 12:12 01/06/19 12:12 General appearance: PRESENT: no acute distress, cooperative, obese, well- developed, well-nourished Head exam: PRESENT: atraumatic, normocephalic Eye exam: PRESENT: conjunctiva pink, EOMI, PERRLA. ABSENT: scleral icterus Mouth exam: PRESENT: moist, tongue midline Respiratory exam: PRESENT: clear to auscultation janay. ABSENT: rales, rhonchi, wheezes Cardiovascular exam: PRESENT: RRR, +S1, +S2. ABSENT: diastolic murmur, rubs, systolic murmur Pulses: PRESENT: normal dorsalis pedis pul Vascular exam: PRESENT: normal capillary refill GI/Abdominal exam: PRESENT: normal bowel sounds, soft. ABSENT: distended, guarding, mass, organolmegaly, rebound, tenderness Rectal exam: PRESENT: deferred Extremities exam: PRESENT: full ROM. ABSENT: calf tenderness, clubbing, pedal edema Neurological exam: PRESENT: alert, awake, oriented to person, oriented to place, oriented to time, oriented to situation, CN II-XII grossly intact. ABSENT: motor sensory deficit Psychiatric exam: PRESENT: appropriate affect, normal mood. ABSENT: homicidal ideation, suicidal ideation Skin exam: PRESENT: dry, intact, warm. ABSENT: cyanosis, rash Results Laboratory Results: 01/06/19 04:06 01/06/19 04:06 01/04/19 06:00 Blood Blood Culture - Final NO GROWTH IN 5 DAYS 01/04/19 05:14 Blood Blood Culture - Final NO GROWTH IN 5 DAYS Impressions: Head CT 01/04/19 03:07 IMPRESSION: Normal CT of the head. Cervical Spine CT 01/04/19 03:08 IMPRESSION: No acute findings. Abdomen/Pelvis CT 01/04/19 04:24 IMPRESSION: Fluid within the colon and rectum, likely related to diarrhea. TECHNICAL DOCUMENTATION: Quality ID # 436: Final reports with documentation of one or more dose reduction techniques (e.g., Automated exposure control, adjustment of the mA and/or kV according to patient size, use of iterative reconstruction technique) copyright 2011 [employer]- All Rights Reserved Qualifiers - * PATIENT BEING DISCHARGED WITH ANY OF THE FOLLOWING DIAGNOSIS: No Plan Discharge Plan: Follow up with primary care provider within 1 week. Recommend follow up chemistry (lab work) at visit. Return to the emergency department as needed for concerning symptoms. Time Spent: Less than 30 Minutes
== END 2019-01-06 13:00 | disposition home or self-care (01) ==
LOC: ER 02:40 → INTOOBSV 06:57 → EH 06:57 → 3W 09:08
PROVIDERS: ADMIT Internal Medicine; ATTEND Internal Medicine
DX: A02.0 Salmonella enteritis (principal); E87.6 Hypokalemia; E86.1 Hypovolemia; N17.9 Acute kidney failure, unspecified; E86.0 Dehydration; R55 Syncope and collapse; S01.132A Puncture wound without foreign body of left eyelid and periocular area, initial encounter; W19.XXXA Unspecified fall, initial encounter; W22.8XXA Striking against or struck by other objects, initial encounter; Y92.002 Bathroom of unspecified non-institutional (private) residence as the place of occurrence of the external cause; I95.9 Hypotension, unspecified; I10 Essential (primary) hypertension; K21.9 Gastro-esophageal reflux disease without esophagitis; E66.9 Obesity, unspecified; F32.9 Major depressive disorder, single episode, unspecified; G89.29 Other chronic pain; Z90.710 Acquired absence of both cervix and uterus; Z90.49 Acquired absence of other specified parts of digestive tract; Z87.42 Personal history of other diseases of the female genital tract; Z79.82 Long term (current) use of aspirin
CPT/HCPCS: 93005; 99291; 96361; 51702; 96365; 96368; 36415 ×3; 87040; 87045; 89055; 87205; 83605; 83735 ×2; 85025; 85027 ×2; 85610; 85730; 82272; 87077; 80048 ×3; 80053; 81001; 87186; 80307; 87493; 70450; 72125; 74176; 93010; G0378 ×4; J3480 ×2; J2405; J3370; J7030 ×3; J7120; J1956